=== PATIENT | male | born 1995 | race Caucasian/White ===

== ENCOUNTER → 2019-01-01 | Outpatient (CLI) | payer OTHER ==
[~2019-01-01] MED LIST: RXHYDACE PO
[2019-01-05 02:44] LABS: NEISSERIA GONORRHOEAE, NAA Negative (Negative)
[2019-01-05 08:10] LABS: CHLAMYDIA TRACHOMATIS, NAA Positive (Negative)
== END | disposition home or self-care (01) ==
LOC: LAB EV 16:10 → LAB SHORT 16:10
PROVIDERS: Physician Assistant
DX: R30.0 Dysuria (principal); Z72.51 High risk heterosexual behavior
CPT/HCPCS: 87086; 87491; 87591

== ENCOUNTER 2020-07-02 00:49 | Emergency (ER) | payer OTHER ==
[~2020-07-02] VITALS: Ht 172.7 cm; Wt 77.1 kg
== END 2020-07-02 04:22 | disposition home or self-care (01) ==
LOC: ER 00:49
DX: S01.21XA Laceration without foreign body of nose, initial encounter (principal); S01.81XA Laceration without foreign body of other part of head, initial encounter; F10.129 Alcohol abuse with intoxication, unspecified; W25.XXXA Contact with sharp glass, initial encounter
CPT/HCPCS: 70450; 99283-25

== ENCOUNTER 2020-09-23 04:14 | Emergency (ER) | payer OTHER ==
[~2020-09-23] VITALS: Ht 177.8 cm; Wt 62.6 kg
[2020-09-23 05:20] LABS: BASOPHILS ABSOLUTE AUTO 0.02 K/mm3 (0.00-0.23); BASOPHILS PERCENT AUTO 0 % (0-2); EOSINOPHILS ABSOLUTE AUTO 0.08 K/mm3 (0.00-0.68); EOSINOPHILS PERCENT AUTO 1 % (0-6); Hematocrit 44.5 % (37.0-53.0); Hemoglobin 15.5 g/dL (13.5-17.5); IMMATURE GRAN ABSOLUTE AUTO 0.04 K/mm3 (0.00-0.10); IMMATURE GRAN PERCENT AUTO 0 % (0-1); LYMPHOCYTES ABSOLUTE AUTO 0.35 K/mm3 (0.84-5.20); LYMPHOCYTES PERCENT AUTO 4 % (21-46); MONOCYTES ABSOLUTE AUTO 1.01 K/mm3 (0.16-1.47); MONOCYTES PERCENT AUTO 11 % (4-13); Mean Corpuscular HGB 31.6 pg (26.0-34.0); Mean Corpuscular HGB Conc 34.8 g/dL (31.5-36.5); Mean Corpuscular Volume 91 fL (80-100); Mean Platelet Volume 8.9 fL (9.1-12.4); NEUTROPHILS PERCENT AUTO 85 % (41-73); Platelet Count 216 K/mm3 (150-400); RDW Coefficient Variation 11.8 % (11.7-14.2); RDW Standard Deviation 39.3 fL (35.1-46.3); Red Blood Cell Count 4.91 M/mm3 (4.30-5.90)
[2020-09-23 05:35] LABS: International Normalized Ratio 1.02; Prothrombin Time Results 10.9 Sec (9.7-11.5)
[2020-09-23 05:37] LABS: Alanine Aminotransfer (ALT/SGP 24 U/L (12-78); Albumin, Blood 4.3 g/dL (3.4-5.0); Albumin/Globulin Ratio 1.1 (0.8-1.8); Alk Phos 59 U/L (50-136); Anion Gap 6 mmol/L (6-16); Aspartate Aminotrans (AST/SGOT 16 U/L (12-37); Bilirubin, Total 0.3 mg/dL (0.1-1.0); Blood Urea Nitrogen 15 mg/dL (8-24); CO2, Blood 25 mmol/L (21-32); Calcium, Blood 9.1 mg/dL (8.5-10.1); Chloride, Blood 107 mmol/L (98-108); Creatinine, Blood 0.88 mg/dL (0.60-1.20); Globulin, Blood 3.8 g/dL (2.2-4.0); Glomerular Filtration Rate >60 (60-); Glucose, Blood 108 mg/dL (70-99); Potassium, Blood 3.9 mmol/L (3.5-5.5); Sodium, Blood 138 mmol/L (136-145); Total Protein, Blood 8.1 g/dL (6.4-8.2)
[2020-09-23] MEDS ORDERED: ONDA4 PO (05:50)
[2020-09-23] MEDS ORDERED: PROM25 PO (05:50)
== END 2020-09-23 06:21 | disposition home or self-care (01) ==
LOC: ER 04:14
PROVIDERS: Emergency Medicine
DX: K29.20 Alcoholic gastritis without bleeding (principal); F17.210 Nicotine dependence, cigarettes, uncomplicated; Z91.09 Other allergy status, other than to drugs and biological substances
CPT/HCPCS: 36415; 80053; 85025; 85610; 85730; 96361; 96374; 96375; 99284-25; C9113; J2405; J2550; J2704; J7030